=== PATIENT | female | born 2005 | race Two or more races ===

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

== ENCOUNTER 2025-08-29 18:20 | Emergency (ER) | payer OTHER ==
[~2025-08-29] VITALS: Ht 152.4 cm; Wt 51.3 kg
[~2025-08-29 18:20] MED LIST changes: +ACET-2605 PO; +CEFD300C3 PO; +EUCA1LOZ37 MM; +IBUP-1955 PO
[2025-08-29 18:30] VITALS: BP 126/96; TEMP 98.9; O2SAT 100
[2025-08-29] MEDS ORDERED: dexaMETHasone SOD PHOSPHATE 4 MG/ML VIAL ONE (19:12)
[2025-08-29] MEDS: dexaMETHasone SOD PHOSPHATE 4 MG/ML VIAL IM ONE (19:18)
[2025-08-29] MEDS ORDERED: IBUP-1953 PO (20:20)
[2025-08-29] MEDS ORDERED: PHEN177S31 PO (20:20)
[2025-08-29 20:23] LABS: MONOTEST NEGATIVE (NEGATIVE)
== END 2025-08-29 20:27 | disposition home or self-care (01) ==
LOC: ER 18:22
DX: J02.9 Acute pharyngitis, unspecified (principal); J45.909 Unspecified asthma, uncomplicated; Z20.822 Contact with and (suspected) exposure to COVID-19
CPT/HCPCS: 99283; 87426; 96372; 87804 ×2; 87070; 86308; 36415; 87880; 82962; J1100; 86403-TC